=== PATIENT | male | born 1970 | race Caucasian/White ===

== ENCOUNTER 2021-06-25 12:11 | Inpatient (IN) | payer OTHER ==
[~2021-06-25] VITALS: Ht 170.2 cm; Wt 77.2 kg
[2021-06-25 14:00] VITALS: BP 161/101
[2021-06-25 15:32] LABS: HEMATOCRIT 41.2 % (42.0-52.0); MCH 29.7 pg (26.0-34.0); MCHC 33.8 g/dL (28.0-37.0); MCV 87.7 fL (80.0-100.0); RBC 4.7 mil/uL (4.50-6.00); RDW 14.5 % (10.5-14.5); WBC 11.6 thou/uL (4.0-11.0)
[2021-06-25 15:45] LABS: INR 1.02; PROTIME 11.1 Seconds (10.5-12.1)
--- NOTE | 2021-06-25 15:56 | NUR ---
LAB CALLED WITH CRITICAL TROPONIN [id number]. CALLED AND LEFT MESSAGE WITH CARIOLOGIST ANSWERING SERVICE. AWAITING RETURN CALL FOR ORDERS.
--- NOTE | 2021-06-25 15:57 | NUR ---
PT IS A DIRECT ADMIT, FROM [facility]. PT ARRIVED WITH NITRO DRIP AND HEPARIN DRIP. CONSULT CALLED TO HAMMER FITTER. SPOKE TO DR AND SAID TO STOP TROP LABS, MAKE PT NPO AT 2400, AND CONTINUE THE POC WITH DRIPS. ADMISSION, CAREPLAN, INTERVENTIONS ALL COMPLETED.
[2021-06-25 17:30] VITALS: BP 161/101
[2021-06-25 20:15] VITALS: BP 167/97
[2021-06-26] VITALS (7 sets, daily range): BP systolic 96–159; BP diastolic 54–105
--- NOTE | 2021-06-26 07:16 | EKG ---
[facility] [place] [address] ELECTROCARDIOGRAM REPORT Name: VIKA POLLARD Room #: 217-P ADM IN M.R.#: [id number] Admission: 06/25/21 Attend Phys: Domenico Mckenzie MD Discharge: Date of : 70 Report #: [id number] [facility] Test Date: 2021-06-25 Test Time: 14:32:49 Pat Name: VIKA POLLARD Department: Room: 217 P Gender: M Supervisor Inventory Merchandising: HUMAIRA : 1970 Requested By: Tung Hernández Order Number: [id number] : Casimiro Aguilar Measurements Intervals [place] Rate: 99 P: 61 DE: 136 QRS: 17 QRSD: 97 T: 246 QT: 391 QTc: 502 Interpretive Statements Sinus rhythm Consider right atrial enlargement LVH with secondary repolarization abnormality Inferiro infart, recent Prolonged QT interval No previous ECG available for comparison Electronically Signed On 06-26-2021 7:15:37 CDT by Casimiro Aguilar [email or web address] <ELECTRONICALLY SIGNED> By: Casimiro Aguilar MD, [facility] 06/26/21 0715 1432 1432 Casimiro Aguilar MD, FACC /EPI
--- NOTE | 2021-06-26 07:58 | NUR ---
PATIENT SHOWING SIGNS OF WITHDRAWAL AND TRYING TO CLIMB OUT OF BED.DOCTOR ORDERED ATIVAN AND WAS GIVEN.SLEPT AFTER MED GIVEN.ON HEPARIN GTT AND NITROGLYCERIN GTT TITRATED PER PROTOCOL.NPO SINCE MIDNIGHT FOR A POSSIBLE PROCEDURE.MONITOR SHOWS SR.POC CONTINUED.
[2021-06-26 08:07] LABS: ALBUMIN 2.9 g/dL (3.4-5.0); CREATININE 1.2 mg/dL (0.7-1.3); PHOSPHORUS 2.7 mg/dL (2.5-4.9); POTASSIUM 3.9 mmol/L (3.5-5.1)
[2021-06-26 08:08] LABS: CHOLESTEROL 143 mg/dL (<200); HDL CHOLESTEROL 68 mg/dL (>40); LDL CHOLESTEROL 62 mg/dL (<100); TC:HDL 2.1 Ratio (Not establshd); TRIGLYCERIDE 65 mg/dL (<150); VLDL 13 mg/dL (<40)
--- NOTE | 2021-06-26 08:44 | EKG ---
[place] [address] [facility] [place] [address] ELECTROCARDIOGRAM REPORT Name: VIKA POLLARD Room #: 217-P ADM IN M.R.#: [id number] Admission: 06/25/21 Attend Phys: Domenico Mckenzie MD Discharge: Date of : 70 Report #: [id number] [facility] Test Date: 2021-06-26 Test Time: 07:50:11 Pat Name: VIKA POLLARD Department: Room: 217 P Gender: M Parts Clerk Plant Maintenance: ANNA : 1970 Requested By: Matt Roberts Order Number: [id number] MD: Matt Roberts Measurements Intervals [place] Rate: 81 P: 55 RI: 161 QRS: 6 QRSD: 96 T: 160 QT: 340 QTc: 395 Interpretive Statements Sinus rhythm Probable left atrial enlargement LVH with secondary repolarization abnormality Inferior infarct, recent Baseline wander in lead(s) V1,V2 Compared to ECG 06/25/2021 14:32:49 Prolonged QT interval no longer present Electronically Signed On 06-26-2021 8:44:24 CDT by Matt Roberts [email or web address] <ELECTRONICALLY SIGNED> By: Matt Roberts MD, [facility] 06/26/21 0844 0750 0750 Matt Roberts MD, [facility] /EPI
--- NOTE | 2021-06-26 08:53 | NUR ---
RECEIVED PT FROM CRITICAL CARE CLINICAL NURSE SPECIALIST. PT WAS SOMNOLENT, DIFFICULT TO AROUSE. DR EL AND JESSICA HORTON CAME TO ASSESS PT. UNABLE TO ASSESS DUE TO PT CURRENT MENTATION. PT HAS HX OF METH AND CANNIBIS USE. CURRENTLY ON CIWA PROTOCOL. EKG OBTAINED THIS AM AND PT BEGAN TO START CLIMBING OUT OF BED. MORNING RX AND PRN ATIVAN GIVEN. WILL CONTINUE TO MONITOR AND ASSESS PT. FALL PRECAUTIONS IN PLACE.
[2021-06-26 09:01] LABS: MAGNESIUM 1.9 mg/dL (1.8-2.4); PHOSPHORUS 2.6 mg/dL (2.5-4.9)
--- NOTE | 2021-06-26 14:22 | 2DMMODE ---
[facility] [place] [address] 2 D/M-MODE ECHOCARDIOGRAM Name: VIKA POLLARD Room #: 217-P ADM IN M.R.#: [id number] Admission: 06/25/21 Attend Phys: Domenico Mckenzie MD Discharge: Date of : 70 Report #: [id number] THIS REPORT FOR: cc: LYNDSAY AHUJA Physician not on staff Matt Roberts MD [facility] ~ APPROVED REPORT Study performed: 06/26/2021 12:32:18 EXAM: Comprehensive 2D, Doppler, and color-flow Echocardiogram Patient Location: Bedside Room #: [facility] Status: routine BSA: 1.89 HR: 81 bpm BP: 119/81 mmHg Rhythm: NSR Other Information Study Quality: Technically DifficultTechnically Limited Technically limited study due to uncooperative patient, inability to position patient. Indications CAD Elevated Troponin IA 2D Dimensions IVSd: 10.80 (7-11mm) LVOT Diam: 21.75 (18-24mm) LVDd: 58.20 mm PWd: 11.35 (7-11mm) Ascending Ao: 34.62 (22-36mm) LVDs: 53.39 (25-40mm) Left Atrium: 48.23 (27-40mm) Aortic Root: 30.87 mm Aortic Valve AoV Peak Marlo.: 1.38 m/s AO Peak Gr.: 7.60 mmHg Pulmonary Valve PV Peak Marlo.: 0.70 m/s PV Peak Gr.: 1.98 mmHg [facility] [address] [place] [address] 2 D/M-MODE ECHOCARDIOGRAM Name: VIKA POLLARD Room #: 217-P ADM IN M.R.#: [id number] Admission: 06/25/21 Attend Phys: Domenico Mckenzie MD Discharge: Date of : 70 Report #: [id number] Left Ventricle Left ventricle is dilated. There is normal left ventricular wall thickness. Left ventricular systolic function is moderately decreased. LVEF is 40%. Inferior and inferolateral hypokinesis Moderate diastolic dysfunction Right Ventricle The right ventricle is normal size. The right ventricular systolic function is normal. Atria Left atrium is dilated. The right atrium size is normal. Aortic Valve The aortic valve is normal in structure. No aortic regurgitation is present. There is no aortic valvular stenosis. Mitral Valve The mitral valve is normal in structure. Moderate mitral regurgitation. No evidence of mitral valve stenosis. Tricuspid Valve The tricuspid valve is normal in structure. Trace tricuspid regurgitation. Unable to assess PA pressure. Pulmonic Valve The pulmonary valve is normal in structure. There is no pulmonic valvular regurgitation. Great Vessels The aortic root is normal in size. IVC is normal in size and collapses >50% with inspiration. Pericardium There is no pericardial effusion. <Conclusion> Left ventricular systolic function is moderately decreased. LVEF is 40%. Inferior and inferolateral hypokinesis Moderate diastolic dysfunction Left atrium is dilated. The aortic valve is normal in structure. No aortic regurgitation or stenosis The mitral valve is normal in structure. Moderate mitral regurgitation. [facility] [address] [place] [address] 2 D/M-MODE ECHOCARDIOGRAM Name: VIKA POLLARD Room #: 217-P [facility] IN ..#: [id number] Admission: 06/25/21 Attend Phys: Domenico Mckenzie MD Discharge: Date of : 70 Report #: [id number] Unable to assess pulmonary artery pressure. There is no pericardial effusion. <ELECTRONICALLY SIGNED> By: Matt Roberts MD, FACC 06/26/21 142 20 20 Matt Roberts MD, FACC /INF
--- NOTE | 2021-06-26 16:17 | NUR ---
PT PLACED ON CONTINUOUS PULSE OX TO MONITOR O2 WHILE RX ATIVAN AND HALIDOL GIVEN. PT O2 SAT PROBE PLACED ON L EAR LOBE. 100% O2 SAT WITH 2LNC.
[2021-06-27 04:03] LABS: ALBUMIN 2.5 g/dL (3.4-5.0); ANION GAP 13 mmol/L (7-16); BUN 26 mg/dL (7-18); CALCIUM 8.1 mg/dL (8.5-10.1); CHLORIDE 100 mmol/L (98-107); CO2 22 mmol/L (21-32); CREATININE 1.3 mg/dL (0.7-1.3); GLUCOSE 76 mg/dL (74-106); MAGNESIUM 2.1 mg/dL (1.8-2.4); POTASSIUM 3.9 mmol/L (3.5-5.1); SGOT 211 U/L (15-37); SGPT 38 U/L (30-65); SODIUM 135 mmol/L (136-145); TOTAL BILIRUBIN 0.9 mg/dL (0.2-1.0); TOTAL PROTEIN 6.8 g/dL (6.4-8.2)
--- NOTE | 2021-06-27 04:19 | NUR ---
PT GIVEN HALDOL AND ATIVAN FOR CIWA ASSESSMENTS, INCON'T OF URINE, DID ANSWER YES FOR C/O CHACON AND PRN PAIN MED GIVEN WITH HS MEDS CRUSHED AND PUT IN APPLESAUCE AND ABLE TO FOLLOW DIRECTIONS AND TOLERATED PO INTAKE WITHOUT ANY DIFFICULTY, VSS, NTG PASTE TO BACK, O2 SATS 95% AND GREATER, SLEPT QUIETLY A FEW HOURS AND BECAME MORE AGITATED AND IMPULSIVE, REPOSITIONED AND GIVEN PRN MEDS, WILL CON'T TO MONITOR FREQUENTLY AND FOLLOW PPOC.
[2021-06-27 04:45] VITALS: BP 142/100
[2021-06-27 08:15] VITALS: BP 135/84
[2021-06-27 11:50] VITALS: BP 104/74
[2021-06-27 15:00] VITALS: BP 137/68
--- NOTE | 2021-06-27 16:22 | NUR ---
Assumed pt care at 7am.Pt in bed very restless and agitated. Medicated as needed with haldol and lorazepam with partial relief.Assessment completed.vss Dr Hernández and Armando here,order noted.Pt tok all scheduled meds with apple sauce.Pt was too drowsy to eat today.Sleeping in bed at present.Will continue to monitor.
--- NOTE | 2021-06-27 17:15 | NUR ---
Patient admits as transfer from [facility] ER to [facility] for nstemi. Patient in ETOH withdraw and cannot at this time participate in assessment. Patient sleeping and somulent. Cannot verify insurance. Appears patient with no health insurance. Cont to follow.
[2021-06-27 19:49] VITALS: BP 116/48
[2021-06-27 23:49] VITALS: BP 110/70
[2021-06-28 04:33] VITALS: BP 112/56
[2021-06-28 05:10] LABS: HEMATOCRIT 36.1 % (42.0-52.0); HEMOGLOBIN 12.1 gm/dL (14.0-18.0); MCH 30.4 pg (26.0-34.0); MCHC 33.4 g/dL (28.0-37.0); MCV 90.8 fL (80.0-100.0); RBC 3.97 mil/uL (4.50-6.00); RDW 14.9 % (10.5-14.5); WBC 11.8 thou/uL (4.0-11.0)
--- NOTE | 2021-06-28 05:52 | NUR ---
No events overnight. Patient was arousable only to voice or touch. CIWA score 2 throughout my shift. Most PO medications were held over night due to patient inability to take medications. Chlordiazepoxide was given with apple sauce. Stable vital signs. Will continue to monitor.
[2021-06-28 07:30] VITALS: BP 143/62
[2021-06-28 12:00] VITALS: BP 143/77
--- NOTE | 2021-06-28 15:52 | EKG ---
[place] [address] [address] [facility] [place] [address] ELECTROCARDIOGRAM REPORT Name: VIKA POLLARD Room #: 217-P ADM IN M.R.#: [id number] Admission: 06/25/21 Attend Phys: Domenico Mckenzie MD Discharge: Date of : 70 Report #: [id number] [facility] Test Date: 2021-06-28 Test Time: 07:44:48 Pat Name: VIKA POLLARD Department: Room: 217 P Gender: M Software Program Manager: babita : 1970 Requested By: Matt Roberts Order Number: [id number] : Casimiro Aguilar Measurements Intervals [place] Rate: 96 P: 50 AR: 191 QRS: -11 QRSD: 102 T: 100 QT: 304 QTc: 385 Interpretive Statements Sinus rhythm Left ventricular hypertrophy Inferior infarct, old Lateral leads are also involved Compared to ECG 06/26/2021 07:50:11 Early repolarization no longer present Myocardial infarct finding still present Electronically Signed On 06-28-2021 15:52:37 CDT by Casimiro Aguilar [email or web address] <ELECTRONICALLY SIGNED> By: Casimiro Aguilar MD, [facility] 06/28/21 1552 0744 0744 Casimiro Aguilar MD, [facility] /EPI
--- NOTE | 2021-06-28 17:10 | NUR ---
PT SOMMULENT. IS BEGINNING TO WAKE UP MORE BUT STILL CONFUSED AND IMPULSIVE BUT REDIRECTABLE. PT AFEBRILE, ADEQUATE UOP (INCONTINENT), NO BM, POOR APPETITE. PT AND SISTER HAVE BEEN THOUROUGHLY UPDATED AND EDUCATED ON PT CONDITION AND POC. PT SLOWLY PROGRESSING TOWARDS POC.
[2021-06-28 20:26] VITALS: BP 161/80
--- NOTE | 2021-06-28 22:06 | NUR ---
ASSUMED PT CARE AT AROUND 1915 HRS. PT BEEN SLEEPING ON AND OFF. AROUSABLE. WAS ABLE TO TAKE HIS MEDS, HE ASLO WAS A FED A CUP OF PUDDING. HE IS STILL RESTLESS, PULLS OF TELE LEADS, TRIED TO GET OUT OF BED A FEW TIMES.HE IS ASKING FOR A SODA.DENIES PAIN. REMAINS INCONTINENT OF BLADDER.DRINKNG WELL WHEN OFFERED WATER.WILL CONTINUE TO MONITOR CLOSELY.
[2021-06-29 04:47] VITALS: BP 122/64
[2021-06-29 08:11] VITALS: BP 116/64
[2021-06-29 12:21] VITALS: BP 119/79
[2021-06-29 16:00] VITALS: BP 115/80
--- NOTE | 2021-06-29 16:33 | NUR ---
Case discussed with the care team. Pt still on 5liters of o2 for copd exac. His CIWA was 9 and he is getting ativan as needed. He is not able to participate in dc planning discussion at this time. Possible IR procedure for stent. Will follow and request therapy evals once pt is able to participate.
[2021-06-29 20:01] VITALS: BP 157/84
[2021-06-30 00:28] LABS: URINE BILIRUBIN NEGATIVE (Negative); URINE BLOOD TRACE (Negative); URINE CLARITY CLEAR; URINE COLOR YELLOW; URINE GLUCOSE-RANDOM* NEGATIVE (Negative); URINE KETONES NEGATIVE (Negative); URINE LEUKOCYTES NEGATIVE (Negative); URINE NITRITE NEGATIVE (Negative); URINE PROTEIN (DIPSTICK) NEGATIVE (Negative); URINE SPECIFIC GRAVITY 1.025 (1.005-1.035); URINE UROBILINOGEN 0.2 E.U./dl (0.2-1.0)
[2021-06-30 04:36] VITALS: BP 156/82
--- NOTE | 2021-06-30 05:19 | NUR ---
ASSUMED PT CARE AT CHANGE OF SHIFT, PT IS ALERT TO SELF, IMPULSIVE AT TIMES, CIWA-9, ATIVAN GIVENX1, PT SLEPT ON AND OFF, INCONTINENT OF BLADDER WITH ADEQUATE URINE OUTPUT, ASESSMENTS CHARTED, MEDS GIVEN PER MAR, NO NEEDS AT THIS TIME, WILL CONTINUE TO MONITOR PER POC
[2021-06-30 08:00] VITALS: BP 128/89; BP 131/92
--- NOTE | 2021-06-30 10:14 | NUR ---
Assess for length of stay. Admit NSTEMI, polysubtance abuse. Hx Etoh, meth, cva, CAD. Pt initially eating poorly but improving since more alert. States usual wt around 200 lb or less. BMI 25. Helped order from alternative menu for lunch. Approved some foods not allowed on heart healthy diet since pt had not been eating well and requested these items. Low nutrition risk
--- NOTE | 2021-06-30 11:11 | NUR ---
Case discussed with the care team. No weekend dc anticipated. PT/OT/ST evals requested. CT head showed old stroke. Weaning back sedation. DC needs are uncertain at this time. Will follow.
[2021-06-30 12:00] VITALS: BP 133/87
[2021-06-30 16:33] VITALS: BP 139/78
--- NOTE | 2021-06-30 17:47 | NUR ---
PT CONTINUES TO BE IMPULSIVE AND ATTEMPTS TO GET OUT OF BED ALL DAY. PT CONSTANTLY REORIENTED AND EDUCATED. CIWA-5. PT NEEDS 1-1 SITTER FOR SAFETY. PT IS MORE AWAKE AND ALERT TODAY (COMPARED TO 2 DAYS AGO). PT DOES NOT HAVE A SOLIDIFIED PLAN. PT HAS BEEN THOUROUGHLY UPDATED AND EDUCATED ON CONDITION AND KNOWN POC. PT SLOWLY PROGRESSING TOWARDS POC.
[2021-06-30 19:46] VITALS: BP 143/86
[2021-07-01 03:47] VITALS: BP 141/71
[2021-07-01 05:56] LABS: ALBUMIN 2.1 g/dL (3.4-5.0); CALCIUM 8.1 mg/dL (8.5-10.1); MAGNESIUM 1.9 mg/dL (1.8-2.4); POTASSIUM 4.4 mmol/L (3.5-5.1); TOTAL BILIRUBIN 0.3 mg/dL (0.2-1.0); TOTAL PROTEIN 6.2 g/dL (6.4-8.2)
[2021-07-01 06:00] LABS: HEMATOCRIT 33.3 % (42.0-52.0); HEMOGLOBIN 10.8 gm/dL (14.0-18.0); MCH 29.2 pg (26.0-34.0); MCHC 32.4 g/dL (28.0-37.0); MCV 90.3 fL (80.0-100.0); RBC 3.69 mil/uL (4.50-6.00); RDW 14.5 % (10.5-14.5); WBC 12.3 thou/uL (4.0-11.0)
--- NOTE | 2021-07-01 07:59 | NUR ---
ASSUMED PATIENT CARE AT 1900H.PATIENET IS ALERT AND ORIENTED TO SELF, SOMETIMES CONFUSED AND IMPULSIVE.REORIENTED TO SELF AND SITUTAION.ON ROOM AIR BREATHING SPONTANEOUSLY.NOT IN PAIN OR DISTRESS.FALL PREVENTION MAINTAINED.ALL NEEDS ATTENDED.
[2021-07-01 08:05] VITALS: BP 138/96
[2021-07-01 12:05] VITALS: BP 141/83
[2021-07-01 15:55] VITALS: BP 128/84
--- NOTE | 2021-07-01 18:29 | NUR ---
Assumed care of pt this AM. Pt is A&O x3, unaware of date. Pt denies any current chest pain, on RA. Pt fed breakfast & lunch, but able to eat dinner by himself after OT evaluation. Pt up to chair today & ambulated to toilet. SR/ SA on the monitor.
[2021-07-01 19:37] VITALS: BP 147/88
[2021-07-02] VITALS (7 sets, daily range): BP systolic 133–159; BP diastolic 82–109
--- NOTE | 2021-07-02 04:21 | NUR ---
ASSUMED CARE OF PT AT SHIFT CHANGE. PT IS AOX3 AND LETS NEEDS BE KNOWN. FALL PRECAUTION IN PLACE. PT REPORTED SOME LLE PAIN; PRN TYLENOL PROVIDED. PT DENIED NAUSEA OR SOA. ASSESSMENT CHARTED. CIWA IMPROVING. PT WAS ABLE TO FEED HIMSELF. PT WAS ABLE TO SLEEP PART OF THE SHIFT. VSS AND NO S/S OF ACUTE DISTRESS. WILL CONTINUE TO MONITOR.
[2021-07-02 05:44] LABS: ALBUMIN 2.1 g/dL (3.4-5.0); CALCIUM 7.9 mg/dL (8.5-10.1); CREATININE 1.2 mg/dL (0.7-1.3); PHOSPHORUS 3.1 mg/dL (2.5-4.9)
--- NOTE | 2021-07-02 20:17 | NUR ---
Assumed care of pt this AM. Pt is A&O x4 today. Currently on RA. Pt up to chair & toilet today. Pt ambulated in hallways x2. Pt seemed to be somewhat SOA, placed O2 monitor on pt & sats were >95%. Pt reported no difficulty w/ ambulating. Pt started c/o lt shoulder pain this evening, given tyleonol w/ no relief. Pt reported that pain started to radiate down lt arm, given nitro sublingual x3 with no relief. Obtained EKG, showed no acute findings. Told pt we would work on getting him some relief for pain, pain slowly subsided during shift report. Pt wanting nicotine patch, relayed information to night nurse.
[2021-07-03 04:28] VITALS: BP 171/85
--- NOTE | 2021-07-03 06:42 | NUR ---
Assumed pt's care beginning of this pm shift. Alert and oriented. Meds given per emar. Pt complained of L/shoulder pain. Lidocain patch to L/shoulder patch. Pt denied chest pain this shift. Tylenol also given. Pt ad jackie this shift with steady gait. Call light within reach.
[2021-07-03 08:00] VITALS: BP 171/91
[2021-07-03 12:00] VITALS: BP 151/91
[2021-07-03 16:00] VITALS: BP 145/83
--- NOTE | 2021-07-03 19:42 | NUR ---
End shift note: Uneventful shift. No new concerns.
[2021-07-03 20:01] VITALS: BP 151/100
--- NOTE | 2021-07-03 21:54 | NUR ---
pt a/o x4 up ad jackie, abdomen soft with active bs, bm 9/. voiding qs. lungs clear on room air. tele intact reading sr with rates in the 80's. skin c/d/i, to transfer to [address] [place] [address] belongings with pt report to Morgan RN.
[2021-07-03 22:00] VITALS: BP 157/100
--- NOTE | 2021-07-04 00:44 | NUR ---
ASSUMED CARE OF PT AT SHIFT CHANGE. PT IS AOX2 AND IS FORGETFUL. FALL PRECAUTION IN PLACE. PT WAS ORIENTED TO THE UNIT AND HER ROOM. PT WAS ABLE TO ANSWER SOME ADMISSION RELATED QUESTIONS. ORDERS RECEIVED AND STARTED. PT HAS A SOFT BP; OTHER VSS. PT DENIED PAIN, NAUSEA OR SOA. PT RAN SR ON TELE. ASSESSMENT CHARTED. PT WAS ABLE TO AMBULATE TO THE BATHROOM WITH ASSIST. PT WAS ABLE TO GET COMFORTABLE AND SLEEP PART OF THE SHIFT. WILL CONTINUE TO MONITOR FOR CHANGES
[2021-07-04 04:02] VITALS: BP 167/104
[2021-07-04 07:30] VITALS: BP 158/102
--- NOTE | 2021-07-04 07:38 | EKG ---
[place] [address] [facility] [place] [address] ELECTROCARDIOGRAM REPORT Name: VIKA POLLARD Room #: 463-P ADM IN M.R.#: [id number] Admission: 06/25/21 Attend Phys: Domenico Mckenzie MD Discharge: Date of : 70 Report #: [id number] [facility] Test Date: 2021-07-02 Test Time: 18:59:58 Pat Name: VIKA POLLARD Department: Room: 463 Gender: M Customer Support Analyst: BING CRAWFORD : 1970 Requested By: Edwin Coates Order Number: [id number] MD: Casimiro Aguilar Measurements Intervals [place] Rate: 86 P: 42 KS: 144 QRS: -6 QRSD: 104 T: 100 QT: 409 QTc: 490 Interpretive Statements Sinus rhythm Probable LVH with secondary repol abnrm Inferior infarct, old Artifact in lead(s) I,II,III,aVR,aVF,V1,V2,V3,V4,V5,V6 Compared to ECG 06/28/2021 07:44:48 No significant changes Electronically Signed On 07-04-2021 7:38:04 CDT by Casimiro Aguilar [email or web address] <ELECTRONICALLY SIGNED> By: Casimiro Aguilar MD, [facility] 07/04/21 0738 58 58 Casimiro Aguilar MD, [facility] /EPI
[2021-07-04 11:06] VITALS: BP 145/96
--- NOTE | 2021-07-04 11:56 | NUR ---
ASSUMED PT CARE THIS AM. PT HAS IV SITE ON L UA SALINE LOCKED. PT IS UP AD MELISA. PT IS ON TELE MONITOR ON. PT HAS HISTORY OF CVA AND L SIDED DEFICITS AND DYSARTHRIC SPEECH NOTED. PT IS ON ROOM AIR. PT TOLERATED DIET AND MEDICATION WELL. WILL CONTINUE TO MONITOR PT. FOLLOW POC.
[2021-07-04 15:44] VITALS: BP 139/95
[2021-07-04 19:21] VITALS: BP 125/77
[2021-07-04 20:11] VITALS: BP 125/77
--- NOTE | 2021-07-05 01:28 | NUR ---
UPON SHIFT ASSESSMENT, PT AOX4. PT REPORTS 10/10 LEFT SHOULDER PAIN, WORSE WITH DEEP BREATHING AND MOVEMENT. PT RECEIVING PRN PO APAP Q4HR. PT DENIES SOB WHILE ON ROOM AIR. PT TOLERATING PO INTAKE OF FLUIDS AND HEART HEALTHY DIET WITHOUT ISSUE. PT WITHOUT NAUSEA OR EMESIS. PT AMBULATING INDEPENDENTLY IN ROOM AND TO BATHROOM. SENSATION INTACT, CAPILLARY REFILL LESS THAN 3SEC, PERIPHERAL PULSES PALPABLE IN ALL EXTREMITIES. PT ENCOURAGED TO NOTIFY STAFF FOR ALL NEEDS, CALL LIGHT WITHIN REACH, BED LOCKED IN LOWEST POSITION, FREQUENT MONITORING WILL CONTINUE. PT TRANSFERRED TO APPROX 0130.
--- NOTE | 2021-07-05 04:45 | NUR ---
PT WAS TRANSFERRED FROM IN A STABLE CONDITION.PT C/O PAIN TO HIS L SHOULDER,MANAGED WITH MED.PT UP ADLIB IN ROOM.PT STILL AWAKE IN ROOM,NOT ABLE TO SLEEP.PT ABLE TO MAKE HIS NEEDS KNOWN.CALL LIGHT WITHIN REACH.
== END 2021-07-05 08:23 | disposition left against medical advice (07) | DRG 280 ==
LOC: 2N 12:11 → 4W 07-03 22:01 → 4S 07-05 01:33
PROVIDERS: Hospitalist; Psychiatry & Neurology Psychiatry; ADMIT Hospitalist; ATTEND Hospitalist
DX: I21.4 Non-ST elevation (NSTEMI) myocardial infarction (principal); J69.0 Pneumonitis due to inhalation of food and vomit; F10.139 Alcohol abuse with withdrawal, unspecified; I25.10 Atherosclerotic heart disease of native coronary artery without angina pectoris; I10 Essential (primary) hypertension; E78.5 Hyperlipidemia, unspecified; Z20.822 Contact with and (suspected) exposure to COVID-19; F17.210 Nicotine dependence, cigarettes, uncomplicated; I48.91 Unspecified atrial fibrillation; Y90.9 Presence of alcohol in blood, level not specified; I73.9 Peripheral vascular disease, unspecified; Z53.29 Procedure and treatment not carried out because of patient's decision for other reasons; Z95.5 Presence of coronary angioplasty implant and graft; Z88.0 Allergy status to penicillin; Z88.5 Allergy status to narcotic agent; Z86.73 Personal history of transient ischemic attack (TIA), and cerebral infarction without residual deficits; Z82.49 Family history of ischemic heart disease and other diseases of the circulatory system; Z71.6 Tobacco abuse counseling
CPT/HCPCS: 10045; 10081